=== PATIENT | male | born 1950 | race Caucasian/White ===

== ENCOUNTER 2017-06-16 14:36 | Inpatient (IN) | payer OTHER, MEDICARE ==
[2017-06-16 15:11] LABS: BASO % 0 % (0-3); EOS # 0.1 x10^3/uL (0.0-0.7); EOS % 1 % (0-3); HEMOGLOBIN 10.5 g/dL (13.0-17.5); LYMPH # 0.7 x10^3/uL (1.0-4.8); LYMPH % 6 % (24-48); MEAN CORPUSCULAR HEMOGLOBIN 27 pg (25-35); MEAN CORPUSCULAR HGB CONC 33 g/dL (31-37); MEAN CORPUSCULAR VOLUME 82 fL (79-100); MONO # 0.9 x10^3/uL (0.0-1.1); MONO % 8 % (0-9); NEUT # 10.5 x10^3uL (1.8-7.7); NEUT % 86 % (31-73); PLATELET COUNT 365 x10^3/uL (140-400); RED BLOOD COUNT 3.91 x10^6/uL (4.30-5.70); RED CELL DISTRIBUTION WIDTH 15.3 % (11.5-14.5); WHITE BLOOD COUNT 12.2 x10^3/uL (4.0-11.0)
[2017-06-16 15:12] LABS: ADD MAN DIFF? YES
[2017-06-16] MEDS: METOPROLOL TARTRATE 5 MG/5 ML VIAL. IVP (15:12)
[2017-06-16] MEDS: ESMOLOL 2500MG/250ML PREMIX 250 ML IV (15:19)
[2017-06-16 15:21] LABS: INR 1.4 (0.8-1.1); PARTIAL THROMBOPLASTIN TIME 35 SEC (24-38); PROTHROMBIN TIME PATIENT 16.5 SEC (11.7-14.0)
[2017-06-16 15:28] LABS: ANION GAP 12 (6-14); BLOOD UREA NITROGEN 45 mg/dL (8-26); CALCIUM 8.9 mg/dL (8.5-10.1); CARBON DIOXIDE 22 mmol/L (21-32); CHLORIDE 97 mmol/L (98-107); CREATININE 2.4 mg/dL (0.7-1.3); GLUCOSE 224 mg/dL (70-99); SODIUM 131 mmol/L (136-145)
[2017-06-16 15:34] LABS: ALBUMIN 2.7 g/dL (3.4-5.0); ALK PHOS 140 U/L (46-116); ALT (SGPT) 53 U/L (16-63); AST (SGOT) 31 U/L (15-37); DIRECT BILIRUBIN 0.4 mg/dL (0.0-0.2); LIPASE 68 U/L (73-393); TOTAL BILIRUBIN 0.8 mg/dL (0.2-1.0); TOTAL PROTEIN 7.5 g/dL (6.4-8.2)
[2017-06-16 15:37] LABS: NT-PRO BNP 685 pg/mL (0-124)
[2017-06-16 15:39] LABS: TROPONINI < 0.017 ng/mL (0.000-0.055)
[2017-06-16 16:29] LABS: % LYMPHS 4 % (24-48); % MONOS 6 % (0-10); % SEGS 90 % (35-66)
[2017-06-16 16:30] LABS: OVALOCYTES OCC; PLT ESTIMATE INCREASED (ADEQUATE); POLYCHROMASIA SLIGHT; SCHISTOCYTES OCC
[2017-06-16] MEDS: CIPROFLOXACIN 400MG PREMIX 200 ML IV (18:17)
[2017-06-16] MEDS: IV NORMAL SALINE 1000ML BAG 1,000 ML IV (18:18)
[2017-06-16] MEDS ORDERED: DEXTROSE 50% 25 GM / 50ML DISP.SYRIN. IV (18:30)
[2017-06-16 18:41] LABS: LACTIC ACID 1.5 mmol/L (0.4-2.0)
[2017-06-17] MEDS: IV NORMAL SALINE 1000ML BAG 1,000 ML IV (03:40)
[2017-06-17 05:09] LABS: ADD MAN DIFF? NO
[2017-06-17 05:23] LABS: BASO % 0 % (0-3); EOS % 0 % (0-3); HEMATOCRIT 28.9 % (39.0-53.0); HEMOGLOBIN 9.6 g/dL (13.0-17.5); LYMPH # 0.9 x10^3/uL (1.0-4.8); LYMPH % 9 % (24-48); MEAN CORPUSCULAR HEMOGLOBIN 27 pg (25-35); MEAN CORPUSCULAR HGB CONC 33 g/dL (31-37); MEAN CORPUSCULAR VOLUME 81 fL (79-100); MONO # 0.9 x10^3/uL (0.0-1.1); MONO % 9 % (0-9); NEUT # 7.8 x10^3uL (1.8-7.7); NEUT % 81 % (31-73); PLATELET COUNT 330 x10^3/uL (140-400); RED BLOOD COUNT 3.57 x10^6/uL (4.30-5.70); RED CELL DISTRIBUTION WIDTH 15.3 % (11.5-14.5); WHITE BLOOD COUNT 9.6 x10^3/uL (4.0-11.0)
[2017-06-17 05:38] LABS: ANION GAP 13 (6-14); BLOOD UREA NITROGEN 38 mg/dL (8-26); CALCIUM 8.5 mg/dL (8.5-10.1); CARBON DIOXIDE 24 mmol/L (21-32); CHLORIDE 102 mmol/L (98-107); GFR 33.3; GLUCOSE 162 mg/dL (70-99); POTASSIUM 3.8 mmol/L (3.5-5.1); SODIUM 139 mmol/L (136-145)
[2017-06-17] MEDS: CIPROFLOXACIN 400MG PREMIX 200 ML IV (05:55)
[2017-06-17 08:27] LABS: POC GLUCOSE 192 mg/dL (70-99)
[2017-06-17] MEDS ORDERED: ALPRAZolam 0.5 MG TABLET PO (10:15)
[2017-06-17 10:21] LABS: RETIC COUNT 1.1 % (0.5-2.5)
[2017-06-17 10:22] LABS: % SAT IRON 6 % (15-34); IRON,SERUM 14 ug/dL (65-175)
[2017-06-17] MEDS: INSULIN ASPART 300 UNITS/3 ML INSULN.PEN SQ ×2 (10:32→12:00)
[2017-06-17] MEDS: amLODIPine BESYLATE 5 MG TABLET PO (10:45)
[2017-06-17] MEDS: hydroCHLOROthiazide 25 MG TABLET PO (10:45)
[2017-06-17] MEDS: METOPROLOL TART IMMED RELEASE 25 MG TABLET. PO (10:46)
[2017-06-17 10:56] LABS: VITAMIN-B12 358 pg/mL (247-911)
[2017-06-17 10:56] LABS: FOLATE 4.71 ng/ml (3.2-20.0)
[2017-06-17 12:10] LABS: POC GLUCOSE 173 mg/dL (70-99)
[2017-06-17 17:16] LABS: MRSA BY PCR Negative (Negative)
[2017-06-17] MEDS ORDERED: INSULIN DETEMIR 300 UNITS/3 ML INSULN.PEN. SQ (21:00)
[2017-06-17] MEDS ORDERED: FAMOTIDINE 20 MG TABLET. PO (21:00)
[2017-06-18] MEDS ORDERED: ASPIRIN CHEWABLE 81 MG TABLET. PO (08:00)
== END 2017-06-17 17:35 | disposition home or self-care (01) | DRG 871 ==
LOC: 2 NORTH 06-17 14:13 → ER 14:36 → 1 WEST ICU 18:04
DX: A41.9 Sepsis, unspecified organism (principal); N17.0 Acute kidney failure with tubular necrosis; J90 Pleural effusion, not elsewhere classified; E44.0 Moderate protein-calorie malnutrition; E11.22 Type 2 diabetes mellitus with diabetic chronic kidney disease; R18.8 Other ascites; I31.3 Pericardial effusion (noninflammatory); I48.91 Unspecified atrial fibrillation; A08.4 Viral intestinal infection, unspecified; I12.9 Hypertensive chronic kidney disease with stage 1 through stage 4 chronic kidney disease, or unspecified chronic kidney disease; D64.9 Anemia, unspecified; E78.00 Pure hypercholesterolemia, unspecified; E78.5 Hyperlipidemia, unspecified; F32.9 Major depressive disorder, single episode, unspecified; F41.9 Anxiety disorder, unspecified; N18.9 Chronic kidney disease, unspecified; Z83.71 Family history of colonic polyps
CPT/HCPCS: 36415; 71045; 74176; 80048; 80076; 82607; 82746; 82962; 83540; 83550; 83605; 83690; 83880; 84484; 85007; 85025; 85045; 85610; 85730; 87040; 87641; 93005; 93306; J0744; J1815; J3490; J7030

== ENCOUNTER → 2020-10-27 | Outpatient (CLI) | payer MEDICARE ==
[2017-06-17 16:09] VITALS: BP 150/79
[~2020-10-27] MED LIST: ALPR0.5T PO; AMLO10TA4 PO; ASPI-630 PO; DIAZ5TAB PO; FAMO20TA5 PO; FLUO20CA20 PO; GABA-585 PO; HYDR-2145 PO; INSU100I18 SQ; INSU100I27 SQ; LISI20TA18 PO; LOVA20TA2 PO; METF10007 PO; METO25TA4 PO
== END ==
LOC: LAB 10:08
PROVIDERS: ATTEND Nurse Practitioner Adult Health
DX: N18.4 Chronic kidney disease, stage 4 (severe) (principal)
CPT/HCPCS: 36415; 86704; 86706; 86803; 87340

== ENCOUNTER → 2020-10-30 | Outpatient (CLI) | payer MEDICARE ==
[2017-06-17 16:09] VITALS: BP 150/79
--- NOTE | 2020-10-30 20:58 | KCIC ---
XR CHEST 1V 10/30/2020 1:10 PM INDICATION: Stage IV kidney disease. Starting dialysis. COMPARISON: None available TECHNIQUE: Portable frontal view of the chest is provided. FINDINGS: The cardiomediastinal silhouette is within normal limits. Lungs are clear. The lumen right chest wall dialysis catheter is identified with the distal tip projecting over the right atrium. There are no significant pleural effusions. There is no pulmonary vascular congestion. No pneumothora x. No suspicious osseous abnormality. IMPRESSION: There is no acute cardiopulmonary process. Right chest wall double-lumen dialysis catheter is identified with the distal tip projecting over the right atrium. No pneumothorax. Electronically signed by: Rani Alamo MD (10/30/2020 8:56 PM) [facility]
== END ==
LOC: KCIC 13:04
PROVIDERS: ATTEND Nurse Practitioner Adult Health
DX: N18.4 Chronic kidney disease, stage 4 (severe) (principal)
CPT/HCPCS: 71045